=== PATIENT | male | born 1975 | race Caucasian/White ===

== ENCOUNTER 2020-05-25 19:24 | Emergency (ER) | payer MEDICAID ==
[~2020-05-25] VITALS: Ht 182.9 cm; Wt 113.4 kg
[2020-05-25 19:28] VITALS: BP_SYST 156
--- NOTE | 2020-05-25 20:26 | NUR ---
Patient to ER bed 04 to gown for evaluation. Side rails up.
--- NOTE | 2020-05-25 21:10 | NUR ---
ER at bedside examining patient.
--- NOTE | 2020-05-25 21:15 | NUR ---
Pt BIB family to ED C/O acute onset of constant, non-radiating, 06/17, right knee pain status-post hitting it against his steering wheel when he was "getting into my car in a hurry," 4 days ago. The patient reports noticing mild swelling and bruising to the right knee, prompting today's ED visit. He also reports that he ran out of his hypertensive medication
[2020-05-25] MEDS ORDERED: LOSARTAN/HYDROCHLOROTHIAZIDE TAB (HYZAAR 50-12.5 MG) PO ONE (21:30)
[2020-05-25] MEDS ORDERED: CEPHALEXIN 500 MG CAPSULE PO ONE (21:30)
[2020-05-25 22:00] VITALS: BP_SYST 138
--- NOTE | 2020-05-25 22:00 | NUR ---
Patient given written and verbal discharge instructions and verbalizes understanding. ER MD discussed with patient the results and treatment provided. Patient in stable condition. ID arm band removed. Rx of Keflex, Coosaar, and Ibuprofen given. Patient educated on pain management and to follow up with PMD. Pain Scale 0/10 Opportunity for questions provided and answered. Medication side effect fact sheet provided.
== END 2020-05-25 22:00 | disposition home or self-care (01) ==
LOC: SED 19:24
DX: L03.115 Cellulitis of right lower limb (principal); I10 Essential (primary) hypertension; F12.90 Cannabis use, unspecified, uncomplicated; F11.90 Opioid use, unspecified, uncomplicated; Z86.19 Personal history of other infectious and parasitic diseases
CPT/HCPCS: 99283